=== PATIENT | female | born 2000 | race Caucasian/White ===

== ENCOUNTER 2018-06-04 14:27 | Outpatient (CLI) | payer OTHER, SELFPAY ==
--- NOTE | 2018-06-04 16:47 | ULT ---
ULTRASOUND OBSTETRICAL COMPLETE: HISTORY: A 17-year-old female for anatomical survey. FINDINGS: number: Cardona. lie: Cephalic. Maternal cervix: 3 cm in length and closed. Placenta: Anterior. No placenta previa. Amniotic fluid volume: DANITA 13 cm. heart rate: 155 bpm The following anatomy is visualized, with no evidence of anomalies: Head, lateral ventricles, cerebellum, nose and lips, spine, upper limbs, lower limbs, four chamber he art, umbilical cord, cord insertion, stomach, kidneys, and bladder. biometry: Head circumference (HC): 16.8 cm 19w 3d Biparietal diameter (BPD): 4.6 cm 19w 6d Abdominal circumference (AC): 14.4 cm 19w 5d Femur length (FL): 2.8 cm 18w 4d Average ultrasound age (AUA): 19w 1d Estimated date of delivery (TALA): 10/28/2018 Last menstrual period (LMP): 01/25/2018 Gestational age by LMP: 18w 4d Estimated weight (EFW): 281 g, +/- 42 g (0 lb 10 oz, +/- 1 oz). IMPRESSION: 1. Live second trimester intrauterine gestation. 2. Estimated gestational age of 19 weeks, 2 day. 3. Cephalic lie. 4. No anatomical abnormalities. jn [] POS: TPC
== END 2018-06-04 14:28 | disposition home or self-care (01) ==
LOC: SCSULT 14:27
DX: Z34.02 Encounter for supervision of normal first pregnancy, second trimester (principal); Z3A.19 19 weeks gestation of pregnancy
CPT/HCPCS: 76805